=== PATIENT | male | born 1960 | race Caucasian/White ===

== ENCOUNTER 2018-10-10 15:15 | Inpatient (IN) | payer MEDICARE, MEDICAID ==
[~2018-10-10] VITALS: Ht 177.8 cm; Wt 85.8 kg
--- NOTE | ~2018-10-10 | EKG ---
[place], [place] ELECTROCARDIOGRAM REPORT NAME: TONY WALTERS UNIT #: [id number] ROOM: 411 DOCTOR: CHRISTOPHER DRAFT REPORT BIRTHDATE: [birth year] [facility] Test Date: 2018-10-10 Test Time: 17:34:20 Pat Name: TONY WALTERS Department: Room: 411 Gender: M Physician Assistant Surgery: Destiny Geller : 1960 Requested By: JOE AMAYA Order Number: [id number] Reading MD: Lana Salazar MD Measurements Intervals [place] Rate: 70 P: 2 NV: 165 QRS: -35 QRSD: 96 T: 174 QT: 394 QTc: 426 Interpretive Statements Sinus rhythm Left axis deviation Anterolateral infarct, age indeterminate Baseline wander in lead(s) V3 No previous ECG available for comparison Electronically Signed On 10-11-2018 15:04:29 PDT by Lana Salazar MD CM:EKGRPT:ELECTROCARDIOGRAM REPORT [id number] JOE WHITE DRAFT REPORT JOE AMAYA MD
--- NOTE | ~2018-10-10 | EKG ---
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
--- NOTE | ~2018-10-10 | EKG ---
[place], [place] ELECTROCARDIOGRAM REPORT NAME: TONY WALTERS UNIT #: [id number] ROOM: 411 DOCTOR: CHRISTOPHER DRAFT REPORT BIRTHDATE: [birth year] [facility] Test Date: 2018-10-10 Test Time: 21:25:19 Pat Name: TONY WALTERS Department: Room: 411 Gender: M Computer Typesetter: Michelle Trotter : 1960 Requested By: JOE AMAYA Order Number: [id number] Reading MD: Lana Salazar MD Measurements Intervals [place] Rate: 65 P: -33 ME: 172 QRS: -34 QRSD: 89 T: 226 QT: 400 QTc: 416 Interpretive Statements Sinus rhythm Left axis deviation Probable anterolateral infarct, age indeterm Electronically Signed On 10-11-2018 15:05:09 PDT by Lana Salazar MD CM:EKGRPT:ELECTROCARDIOGRAM REPORT [id number] JOE AMAYA MD EPIPHANY DRAFT REPORT JOE AMAYA MD
--- NOTE | ~2018-10-10 | EKG ---
[place], [place] ELECTROCARDIOGRAM REPORT NAME: TONY WALTERS UNIT #: [id number] ROOM: 411 DOCTOR: CHRISTOPHER DRAFT REPORT BIRTHDATE: [birth year] [facility] Test Date: 2018-10-12 Test Time: 20:50:16 Pat Name: TONY WALTERS Department: Room: 411 1 Gender: M Software Design Manager: EKG.MT : 1960 Requested By: KATHERINE REYES Order Number: [id number] Reading MD: Lana Salazar MD Measurements Intervals [place] Rate: 65 P: 55 [place]: 167 QRS: -26 QRSD: 98 T: 136 QT: 389 QTc: 405 Interpretive Statements Sinus rhythm Probable left atrial enlargement Borderline left axis deviation Probable anterolateral infarct, age indeterm Compared to ECG 10/10/2018 21:25:19 No significant changes Electronically Signed On 10-13-2018 15:07:11 PDT by Lana Salazar MD CM:EKGRPT:ELECTROCARDIOGRAM REPORT [id number] 1507 KATHERINE BALDERAS DRAFT REPORT KATHERINE REYES DO
[~2018-10-10 15:15] MED LIST: ASPIR LOW81 MG PO; HUMALOG100 U/ML SC; HYDROCODONE APA PO; LANTUS100 U/ML SC; LISINOPRIL5 MG PO; LOPRESSOR25 MG PO; METFORMIN1000 MG PO; PERCOCET 325 MG1 TA2 PO; PLAVIX75 MG PO; PRAVACHOL40 MG PO; PRILOSEC20 MG PO; ZANAFLEX4 M1 PO; ZANAFLEX4 MG PO
[2018-10-10 15:18] VITALS: BP 118/65
[2018-10-10 15:38] LABS: BASO # 0.1 10*3/uL (0.0-0.1); BASO % 0.7 % (0.0-1.0); EOS # 0.4 10*3/uL (0.0-0.4); EOS % 4.1 % (1.0-4.0); HEMATOCRIT 45.5 % (42.0-52.0); HEMOGLOBIN 15.5 g/dl (14.0-18.0); LYMPH # 1.7 10*3/uL (1.3-4.4); LYMPH % 17.7 % (27.0-41.0); MEAN CELL VOLUME 94.6 fl (80.0-94.0); MEAN CORPUSCULAR HGB 32.2 pg (27.0-31.0); MEAN CORPUSCULAR HGB CONC 34.1 g/dl (33.0-37.0); MEAN PLATELET VOLUME 11.6 fl (9.6-12.3); MONO # 1.1 10*3/uL (0.1-1.0); MONO % 11.4 % (3.0-9.0); NEUT # 6.2 10*3/uL (2.3-7.9); NEUT % 65.8 % (47.0-73.0); PLATELET COUNT AUTOMATED 202 10*3/uL (130-400); RED BLOOD COUNT 4.81 10*6/uL (4.50-5.90); RED CELL DISTRI WIDTH 12.4 % (0-14.5); WHITE BLOOD COUNT 9.4 10*3/uL (4.8-10.8)
[2018-10-10 15:49] LABS: ACT PARTIAL THROMBO TIME 25.2 SECONDS (20.0-32.1); INTERNATIONAL NORM RATIO 0.9 (2.0-3.5)
[2018-10-10 15:54] LABS: ALBUMIN 3.9 gm/dl (3.1-4.5); ALKALINE PHOSPHATASE 78 U/L (45-117); BUN 22 mg/dl (7-24); CHLORIDE 102 mmol/L (98-107); CREATININE 1.19 mg/dL (0.70-1.30); SGOT/AST 41 IU/L (3-35); SGPT/ALT 54 U/L (12-78); SODIUM 136 mmol/L (136-145); TOTAL PROTEIN 7.6 gm/dL (6.4-8.2)
[2018-10-10 15:57] LABS: TROPONIN I 0.042 ng/ml (<0.045)
[2018-10-10 16:12] VITALS: BP 122/75
--- NOTE | 2018-10-10 16:12 | NUR ---
LA 2.4 DR AMAYA AWARE.
[2018-10-10 16:58] VITALS: BP 120/76
[2018-10-10 17:20] VITALS: BP 123/74
--- NOTE | 2018-10-10 17:20 | NUR ---
A 57, admitted to , under the services of CORNELIUS Meyers DO with a diagnosis of CHEST PAIN WITH MODERATE RISK FOR CARDIAC ETIOLOGY. Chief complaint is CHEST PAIN. Patient arrived via bed from ER. Monitor applied. Initial assessment completed. Vital signs taken and recorded. CORNELIUS MEYERS DO notified of admission to the unit. Orders received. See assessment for past medical history, medications and allergies. Patient and/or family oriented to unit. [facility] visitation policy reviewed. Clothing/patient valuable form completed. [address]
--- NOTE | 2018-10-10 18:55 | NUR ---
PT GIVEN TORADOL 30 MG AT THIS TIME FOR C/O BACK AND BILATERAL FOOT PAIN. WILL MONITOR FOR EFFECTIVENESS. PT CURRENTLY SITTING UP, EATING DINNER. CALL LIGHT IN REACH.
[2018-10-10 20:00] VITALS: BP 122/91
--- NOTE | 2018-10-10 20:31 | NUR ---
SPOKE WITH DR SHAH REGARDING CLAIFICATION OF NEW ORDER FOR ONE TIME DOSE OF TORADOL. PATIENT RECENTLY WAS GIVEN ONE TIME DOSE AT 1849 DR SHAH WAS INFORMED AND STATED NOT TO GIVE CURRENT DOSE. SHE WILL PLACE NEW ORDERS FOR PAIN MANAGEMENT.
--- NOTE | 2018-10-10 21:24 | NUR ---
PRN MORPHINE GIVEN AT THIS TIME FOR COMPLAINTS OF BACK AND CHEST PAIN RATED 7/10. PHYSICIANS ARE AWARE OF PATIENT COMPLAINTS OF CHEST PAIN. WILL EVALUATE EFFECTIVENESS OF MORPHINE.
--- NOTE | 2018-10-10 21:56 | NUR ---
PATIENT REFUSED FECAL OCCULT UNLESS IT WAS DR SHAH WHO PERFORMED THE TEST. DR SHAH WAS INFORMED.
--- NOTE | 2018-10-10 22:13 | NUR ---
PRN RESTORIL GIVEN AT THIS TIME FOR COMPLAINTS OF INSOMNIA. AT THIS TIME PATIENT ALSO STATES PRN MORPHINE WAS EFFECTIVE FOR RELIEVING PAIN. PATIENT NOW RATES BACK AND CHEST PAIN 3/10. WILL EVALAUTE EFFECTIVENESS OF RESTORIL.
--- NOTE | 2018-10-10 22:25 | NUR ---
DR PARK NOTIFIED OF CONSULT FOR CARDIOLOGY. NO ORDERS RECEIVED AT THIS TIME.
--- NOTE | 2018-10-10 22:34 | NUR ---
DR SHAH NOTIFIED OF ELEVATED TROPONIN OF 0.054
[2018-10-11] VITALS (7 sets, daily range): BP systolic 101–132; BP diastolic 54–80
--- NOTE | 2018-10-11 | NUR ---
UPON ENTERING ROOM PATIENT TO ASSESS PT. HE STATED WHAT WOULD YOU DO IF I HAD BEEN SLEEPING? I INFORMED PATIENT THAT I WOULD HAVE LET HIM SLEEP. COOPERATIVE WITH ASSESSMENT. VOICES NO C/O CHEST PAIN OR ANY DISCOMFORT AT THIS TIME. CALL LIGHT WITHIN REACH.
--- NOTE | 2018-10-11 04:15 | NUR ---
MEDICATED WITH MS FOR C/O PAIN.
--- NOTE | 2018-10-11 06:00 | NUR ---
MEDICATED WITH NORCO FOR C/O CHEST/JAW PAIN.
--- NOTE | 2018-10-11 06:02 | NUR ---
MEDICATED WITH NORCO FOR C/O CHEST & JAW PAIN.
[2018-10-11 06:21] LABS: ALBUMIN 3.6 gm/dl (3.1-4.5); ALKALINE PHOSPHATASE 68 U/L (45-117); BUN 28 mg/dl (7-24); CHLORIDE 102 mmol/L (98-107); CHOLESTEROL 136 mg/dL (<200); CREATININE 0.96 mg/dL (0.70-1.30); FREE T4 1.22 ng/dl (0.76-1.46); HDL CHOLESTEROL 40 mg/dl (40-60); LDL CHOLESTEROL 72 mg/dL (9-159); POTASSIUM 3.9 mmol/L (3.5-5.1); SGOT/AST 36 IU/L (3-35); SGPT/ALT 52 U/L (12-78); SODIUM 133 mmol/L (136-145); TOTAL PROTEIN 6.9 gm/dL (6.4-8.2); TRIGLYCERIDES 121 mg/dl (<150); VLDL CHOLESTEROL 24 mg/dL (6-40)
[2018-10-11 06:25] LABS: THYROID STIM HORMONE (HS) 0.984 uIU/ml (0.358-4.75)
[2018-10-11 06:26] LABS: BASO # 0.1 10*3/uL (0.0-0.1); BASO % 0.9 % (0.0-1.0); EOS # 0.6 10*3/uL (0.0-0.4); EOS % 8.8 % (1.0-4.0); LYMPH # 2.2 10*3/uL (1.3-4.4); LYMPH % 31.3 % (27.0-41.0); MEAN CELL VOLUME 94.5 fl (80.0-94.0); MEAN CORPUSCULAR HGB 31.5 pg (27.0-31.0); MEAN CORPUSCULAR HGB CONC 33.3 g/dl (33.0-37.0); MONO # 0.9 10*3/uL (0.1-1.0); MONO % 13.3 % (3.0-9.0); NEUT # 3.2 10*3/uL (2.3-7.9); NEUT % 45.6 % (47.0-73.0); PLATELET COUNT AUTOMATED 183 10*3/uL (130-400); RED BLOOD COUNT 4.76 10*6/uL (4.50-5.90); RED CELL DISTRI WIDTH 12.5 % (0-14.5)
--- NOTE | 2018-10-11 06:35 | NUR ---
PT. STATES "STOMACH UPSET FROM NORCO". TOOK PATIENT LATASHA ABHAY & SALTINES.
--- NOTE | 2018-10-11 06:44 | NUR ---
PT. C/O CHEST/JAW PAIN. STATES MS INEFFECTIVE. CALLED DR. BAEZA; NEW ORDER RECEIVED.
[2018-10-11 07:33] LABS: VITAMIN D, 25-HYDROXY 22.4 ng/mL (30-100)
--- NOTE | 2018-10-11 12:07 | NUR ---
NORCO GIVEN FOR C/O BACK PAIN. RATES 8/10 ON PAIN SCALE. WILL MONITOR.
--- NOTE | 2018-10-11 13:43 | NUR ---
[facility] [phone] AWAITING CALL BACK
--- NOTE | 2018-10-11 14:26 | NUR ---
EARLIER NORCO BACK PAIN HAS BEEN EFFECTIVE, PT CONTINUES TO CONSTANTLY WALK THE HALLS, HANG OUT AT THE DESK, STOPPING MOST STAFF TO TALK AND WAS OVERHEARD SAYING "STOP IN AND SEE ME LATER" TO A YOUNGER STAFF MEMBER
--- NOTE | 2018-10-11 14:47 | NUR ---
AWAITING CALL BACK TO VERIFY MEDS PT IN ROOM AT BEDSIDE
--- NOTE | 2018-10-11 15:27 | NUR ---
Shift chart check completed.24 HR chart check completed.
--- NOTE | 2018-10-11 16:31 | NUR ---
PT AMBULATORY IN THE HALLS. ROOM AIR. SKIN WARM AND DRY. "I'VE BEEN TO A LOT OF HOSPITALS AND I HAVE REALLY HAD A GOOD EXPERIENCE HERE". HEP LOCK INTACT. NO PERIPHERAL EDEMA. LUNGS CLEARLY DIMINISHED. MONITOR SHOWS OCCASIONAL ATRIAL PACING. SEE ALL APPROPRIATE INTERVENTIONS.
--- NOTE | 2018-10-11 18:04 | NUR ---
MERVIN FOR BACK PAIN "6 OR 7"10 PER PT REQUEST.
--- NOTE | 2018-10-11 18:54 | NUR ---
PT HAS BEEN AMBULATING IN HALLS WITH HIS CANE WITH NO FURTHER VOICED COMPLAINTS OF PAIN SINCE EARLIER [place].
--- NOTE | 2018-10-11 21:59 | NUR ---
MEDICATED WITH RESTORIL FOR C/O INSOMNIA.
[2018-10-12] VITALS: BP 109/76
--- NOTE | 2018-10-12 | NUR ---
RESTING IN BED WITH EYES CLOSED. CALL LIGHT WITHIN REACH.
--- NOTE | 2018-10-12 06:05 | NUR ---
MEDICATED WITH NORCO FOR C/O CHEST, JAW & BACK PAiN RATED AN 8/10.
--- NOTE | 2018-10-12 06:18 | NUR ---
AMBULATING IN THE HALLWAYS WITH A CANE. GAIT STEADY.
[2018-10-12 06:27] LABS: BUN 20 mg/dl (7-24); CHLORIDE 108 mmol/L (98-107); CREATININE 0.76 mg/dL (0.70-1.30); SODIUM 136 mmol/L (136-145)
[2018-10-12 06:32] LABS: POTASSIUM 5.4 mmol/L (3.5-5.1)
--- NOTE | 2018-10-12 07:30 | NUR ---
BLOOD SUGAR 223; COVERAGE GIVEN PER EMAR.
--- NOTE | 2018-10-12 07:30 | NUR ---
AMBULATING HALLWAY. NO DISTRESS NOTED
[2018-10-12 08:00] VITALS: BP 122/72
--- NOTE | 2018-10-12 08:09 | NUR ---
24 HR chart check completed.
--- NOTE | 2018-10-12 09:00 | NUR ---
DR ETIENNE PRESENT ON FLOOR TO ASSESS PATIENT AND DISCUSS PLAN OF CARE
--- NOTE | 2018-10-12 09:40 | NUR ---
Feli ETIENNE CALLED IN REGARDING MEDS. PER DR ETIENNE, PATIENT CLAIMS TO TAKE LASIX WHICH IS NOT LISTED ON MED REC. ATTEMPTED TO VERIFY MEDS WITH PATIENT WHO CLAIMS HE HAS TOLD MULTIPLE STAFF MEDICATIONS. MEDS AGAIN REVIEWED AND UPDATED IN COMPUTER. PATIENT UNSURE OF SOME DOSES AND CONTINUALLY ADDS MEDS. PER PATIENT, [facility] AND HAS NOT BEEN TO A DR OR HAD MEDS FILLED. CLAIMS MEDS PROVIDED BY SNF ON D/C BUT MEDS WERE "STOLEN FROM MY CAR." RN SPOKE WITH SNF FACILITY YESTERDAY BUT UNWILLING TO PROVIDE INFORMATION REGARDING MEDS. PATIENT RECENTLY IN-PT AT [facility], ATTEMPTED TO OBTAIN RECORDS YESTERDAY AND AGAIN REFAXED TODAY. DR ETIENNE CONTACTED AND INFORMED
[2018-10-12] MEDS ORDERED: IMDUR SA30 MG PO (09:51)
[2018-10-12] MEDS ORDERED: COREG3.125 MG PO (09:52)
[2018-10-12] MEDS ORDERED: GLUCOPHAGE1000 MG PO (09:53)
[2018-10-12] MEDS ORDERED: METFORMIN HCL500 M2 PO (09:54)
[2018-10-12] MEDS ORDERED: LASIX10 MG/ML PO (09:55)
[2018-10-12] MEDS ORDERED: NOVOLIN 70100 UNIT/2 SC (09:56)
[2018-10-12] MEDS ORDERED: LIPITOR40 MG PO (09:57)
[2018-10-12] MEDS ORDERED: NOVOLIN 70100 UNIT/2 SQ (10:00)
--- NOTE | 2018-10-12 10:00 | NUR ---
CONTINUES TO AMBULATE WITH NO DISTRESS NOTED
[2018-10-12] MEDS ORDERED: K-TAB10 MEQ PO (10:08)
[2018-10-12] MEDS ORDERED: CAROSPIR25 MG/5 ML PO (10:09)
--- NOTE | 2018-10-12 11:30 | NUR ---
DR BYNUM/ LOWELL HARDY
[2018-10-12] MEDS ORDERED: GLUCOPHAGE500 M1 PO (11:39)
[2018-10-12 12:00] VITALS: BP 130/73
--- NOTE | 2018-10-12 12:02 | NUR ---
REQUESTED AND RECEIVED NORCO PER PRN ORDER FOR COMPLAINTS OF JAW AND CHEST PAIN RATING A 6. VSS. NO UTILITIES AND MAINTENANCE SUPERVISOR CHANGES. WILL MONITOR
--- NOTE | 2018-10-12 12:30 | NUR ---
AGAIN AMBULATING HALLWAY. NO FURTHER COMPLAINTS
--- NOTE | 2018-10-12 12:40 | NUR ---
DR ETIENNE CONTACTED AND INFORMED INFO RECEIVED FROM RECENT ADMISSION [facility]. MED REC UPDATED
--- NOTE | 2018-10-12 13:18 | NUR ---
PT REQUESTED IV ZOFRAN PER PRN ORDER FOR C/O NAUSEA. WILL MONITOR EFFECTIVENESS.
--- NOTE | 2018-10-12 14:30 | NUR ---
AMBULATING HALLWAY. NO VOICED COMPLAINTS
--- NOTE | 2018-10-12 15:30 | NUR ---
DR PARK CARDIOLOGY PRESENT ON FLOOR TO ASSESS PATIENT AND DISCUSS PLAN OF CARE. RECORDS FROM [facility] REVIEWED. PER DR PARK, NO FURTHER TESTING NEEDED
--- NOTE | 2018-10-12 15:50 | NUR ---
PATIENT AMBULATING HALLWAY AGAIN AFTER DISCUSSION WITH DR PARK. WALKED TO NURSES STATION, STATES "I'M STILL NAUSEATED" DESPITE PREVIOUS ZOFRAN. PATIENT THEN CONTINUES TO AMBULATE HALLWAY WITH NO DISTRESS NOTED
[2018-10-12 16:00] VITALS: BP 112/75
--- NOTE | 2018-10-12 17:15 | NUR ---
PATIENT SITTING AT BEDSIDE CONSUMING CHICKEN STIR-BAKER WITHOUT DIFFICULTY DESPITE EARLIER COMPLAINTS OF NAUSEA
--- NOTE | 2018-10-12 18:00 | NUR ---
AMBULATED TO NURSING STATION C/O NAUSEA AND PAIN. PATIENT CONTINUES TO AMBULATE HALLS IN NO APPARENT DISTRESS. NOT AVAIL IN ROOM FOR MEDICATION
--- NOTE | 2018-10-12 18:30 | NUR ---
PATIENT STATES PACER BIO-MED. NO CARD AVAILABLE PATIENT STATES HE DID NOT RECEIVE D/T BEING IN LONGTERM WHEN PLACED.
--- NOTE | 2018-10-12 18:45 | NUR ---
PATIENT OBSERVED ON 3RD FLOOR BY HOSPITAL STAFF. PATIENT APPROACHED REGARDING LEAVING THE FLOOR. PATIENT DEFENSIVE STATING "I'M NOT A CHILD." POLICY REVIEWED AND PATIENT ASKED TO NOT LEAVE FLOOR AGAIN ALTHOUGH HE IS PERMITTED TO AMBULATE ON 4TH FLOOR
--- NOTE | 2018-10-12 19:15 | NUR ---
AISLINN CALLED IN, WILL INTERROGATE PACER IN AM
--- NOTE | 2018-10-12 19:36 | NUR ---
PATIENT UP & WALKING MULTIPLE LAPS IN HALLWAY. NO S/S OF DISTRESS NOTED.
[2018-10-12 20:00] VITALS: BP 121/87
--- NOTE | 2018-10-12 20:18 | NUR ---
PT WALKING AROUND IN HALLWAY AND COMES UP TO NURSES STATION AT THIS TIME C/O NAUSEA & PAIN IN BACK/CHEST/L ARM/JAW DESPITE ZOFRAN/NORCO ADMINISTERED AT 1830. PT STATES "IT FEELS LIKE I GOT BEAT UP." PT ENCOURAGED TO REST AT THIS TIME. RN LEFT ROOM AND RETURNED WITH LATASHA ABHAY/SODA CRACKERS TO OFFER PT. PT SITTING UP IN BED. NO PHYSICAL S/S OF DISTRESS NOTED.
--- NOTE | 2018-10-12 20:29 | NUR ---
RN ENTERED ROOM TO FIND PATIENT LAYING IN BED WITH HANDS BEHIND HEAD & LEG UP RESTING ON OPPOSITE KNEE. PT SMILING AND WATCHING TV. RN OFFERED PATIENT TYLENOL FOR C/O PAIN. PATIENT LASHES BACK AT RN ASKING "ARE YOU NEW HERE OR SOMETHING? IF NORCO DIDN'T WORK WHY WOULD TYLENOL." RN EXPLAINED TO PATIENT THAT TYLENOL IS THE ONLY AVAILABLE MEDICATION ORDERED AND THAT THE DR WOULD HAVE TO BE CALLED. PATIENT STATES "WELL IF YOU WEREN'T NEW, YOU WOULD KNOW TO CALL THE DR." RN EXPLAINED TO PATIENT THAT SHE WANTED TO OFFER ALL AVAILABLE MEDICATIONS PRIOR TO CALLING THE DR IN HOPES OF HELPING PT FIND SOME RELIEF. PT CONTINUES TO BE HOSTILE WITH RN AND YELLING. NOTIFIED OF SITUATION AND PATIENT'S REQUEST FOR "SOMETHING STRONGER MEDICATION-BOUDREAUX." STATES HE WILL REVIEW CHART. ALSO AWARE OF PATIENT AMBULATING HALLS PRIOR TO PAIN & BEING FOUND ON 3RD FLOOR EARLIER TODAY.
--- NOTE | 2018-10-12 20:52 | NUR ---
WENT IN TO MEDICATE PT WITH IV MORPHINE ORDERED BY . PATIENT NOT IN ROOM, UP AMBULATING IN [place]. PATIENT RETURNED TO ROOM. STILL RATING PAIN 10/10. 1 MG IV MORPHINE ADMINISTERED SLOWLY AT THIS TIME. IV SITE IN RAC PATENT W/ DRESSING D/I. [employer]P [employer]NER[employer]IPS IN ROOM TO CARRY OUT EKG ORDER. WILL CONTINUE TO MONITOR.
--- NOTE | 2018-10-12 21:02 | NUR ---
PT AGAIN UP IN [place] AMBULATING WITH CANE.
--- NOTE | 2018-10-12 21:36 | NUR ---
PT UP AMBULATING IN HALLS. STATES EARLIER MORPHINE EFFECTIVE, NOW RATING PAIN 5/10. PT STILL C/O NAUSEA. SODA CRACKERS/LATASHA ABHAY AGAIN OFFERED. PT ACCEPTED. WILL MONITOR. CALL LIGHT LEFT IN REACH.
--- NOTE | 2018-10-12 22:54 | NUR ---
PATIENT UP AMBULATING IN HALLS WITH CANE. PT SITTING AT PA STATION ASKING THE GIRLS TO COME TO HIS ROOM TO TALK WITH HIM. THE PAs DECLINED AND NOTIFIED CHARGE NURSE OF THIS. PATIENT ASKED TO REMAIN IN ROOM, IT IS 11 PM AT NIGHT AND IS A COURTESY TO THE OTHER PATIENTS WHO ARE SICK. PT STATES HE MUST GET UP HIS BACK HURTS IF HE DOES NOT. RN OFFERED THAT IF PT IS UP AMBULATING IN HALLWAY, TO PLEASE REMAIN ON THE 4TH FLOOR AND TO NOT GO INTO OTHER PATIENT ROOMS. ALSO EXPLAINED TO PT THAT HE IS NOT PERMITTED TO SIT AT PA STATION, BECAUSE THEY ARE NOT ABLE TO CHART WHILE HE IS THERE. RN EXPLAINED TO PT THAT THIS COULD LEAD TO A POTENTIAL HIPAA VIOLATION. PT VERBALIZES UNDERSTANDING AND AGREES TO THESE TERMS. SHIFT DIRECTOR NOTIFIED OF SITUATION.
[2018-10-13 00:20] VITALS: BP 105/72
--- NOTE | 2018-10-13 00:30 | NUR ---
PT MEDICATED WITH IV ZOFRAN FOR C/O NAUSEA. PO NORCO ALSO ADMINISTERED FOR C/O CHEST/L ARM/JAW/BACK PAIN RATED 6/10. WILL MONITOR EFFECTIVENESS. CALL LIGHT LEFT IN REACH.
--- NOTE | 2018-10-13 02:16 | NUR ---
EARLIER MEDICATIONS APPEAR EFFECTIVE. PATIENT ALSEEP IN BED. RESPIRATIONS EASY. NO S/S OF DISTRESS NOTED. WILL MONITOR. CALL LIGHT LEFT IN REACH.
--- NOTE | 2018-10-13 02:44 | NUR ---
PT AMBULATING IN [place] AT THIS TIME. DENIES ANY NEEDS CURRENTLY.
--- NOTE | 2018-10-13 06:28 | NUR ---
RN ACCOMPANIED TANK INSPECTOR INTO ROOM FOR MORNING BLOOD DRAW. TANK INSPECTOR KNOCKED, INTRODUCED SELF, USED HAND DEPUTY COUNTY COUNSEL, AND EXPLAINED SHE WAS GOING TO DRAW BLOOD FOR ORDERED LABS THIS MORNING. PATIENT IMMEDIATELY BECAME HOSTILE AND BEGAN YELLING AT TANK INSPECTOR, STATING THERE IS ABSOLUTELY NO WAY SHE IS GOING TO DRAW HIS BLOOD. RN AND TANK INSPECTOR EXPLAINED TO PATIENT THE IMPORTANCE OF THESE LAB RESULTS. PT STATES HE DOES NOT CARE. WILL ONLY AGREE TO FINGER STICK FOR BEDSIDE GLUCOSE TEST. LABS CANCELLED FOR THIS REASON. PT C/O CHEST PAIN/JAW PAIN/L ARM PAIN/BACK PAIN RATED 6/10. PO NORCO ADMINISTERED AT THIS TIME. WILL MONITOR EFFECTIVENESS.
--- NOTE | 2018-10-13 07:30 | NUR ---
NORCO NOT FULLY EFFECTIVE PER PT. WILL MONITOR.
[2018-10-13 08:00] VITALS: BP 130/86; BP 139/82
--- NOTE | 2018-10-13 10:53 | NUR ---
NORCO GIVEN FOR C/O CHEST PAIN. RATES 6/10 ON PAIN SCALE. ZOFRAN GIVEN FOR C/O NAUSEA. WILL MONITOR.
[2018-10-13 12:00] VITALS: BP 116/69
--- NOTE | 2018-10-13 12:00 | NUR ---
NORCO HELPING, NOT FULLY EFFECTIVE PER PT. WILL CONTINUE TO MONITOR.
[2018-10-13] MEDS ORDERED: ACCU-CHEK FAST1 EACH MC (13:22)
[2018-10-13] MEDS ORDERED: LIPITOR40 MG PO (13:22)
[2018-10-13] MEDS ORDERED: IMDUR SA30 MG PO ×2 (13:22→13:29)
[2018-10-13] MEDS ORDERED: GLUCOPHAGE500 M1 PO (13:22)
[2018-10-13] MEDS ORDERED: ASPIR LOW81 MG PO (13:22)
[2018-10-13] MEDS ORDERED: GLUCOPHAGE1000 MG PO (13:22)
[2018-10-13] MEDS ORDERED: COREG3.125 MG PO (13:22)
[2018-10-13] MEDS ORDERED: NOVOLIN 70100 UNIT/2 SC (13:22)
[2018-10-13] MEDS ORDERED: LISINOPRIL5 MG PO (13:22)
[2018-10-13] MEDS ORDERED: PLAVIX75 M1 PO (13:22)
[2018-10-13] MEDS ORDERED: TEST STRIPS1 EACH MC (13:22)
[2018-10-13] MEDS ORDERED: ALDACTONE25 MG PO (13:22)
[2018-10-13] MEDS ORDERED: K-TAB10 MEQ PO (13:22)
[2018-10-13] MEDS ORDERED: VITAMIN D31000 UNI1 PO (13:22)
[2018-10-13] MEDS ORDERED: NOVOLIN 70100 UNIT/2 SQ (13:22)
[2018-10-13] MEDS ORDERED: Humalog SQ (13:22)
[2018-10-13] MEDS ORDERED: LASIX10 MG/ML PO (13:22)
[2018-10-13] MEDS ORDERED: PEN NEEDLE1 EAC1 MC (13:22)
[2018-10-13] MEDS ORDERED: COREG12.5 M1 PO (13:29)
[2018-10-13] MEDS ORDERED: LASIX20 MG PO (13:31)
--- NOTE | 2018-10-13 14:37 | NUR ---
Safety Instruction Police Officer in to talk to patient. Patient states lives at HOME with FRIEND. There are FEW steps in the home. Physician: NONE AT THIS TIME Pharmacy: [facility] Home health services: NONE Patient's level of ADLs: INDEPENDENT Patient has working utilities: YES DME: CANE Follow-up physician's appointment after d/c: STATES HE WILL FIND ONE AND MAKE APPOINTMENT Does patient want to access PORTAL?: NO Discharge plan PT LIVES AT HOME WITH A FRIEND. DENIES ANY NEEDS AT HOME BUT STATES HE JUST GOT OUT OF CARE HOME AND RECENTLY HAD ALL OF HIS MEDICATION AND GLUCOMETER STOLEN FROM A CAR. STATES HE WILL NEED NEW MEDS. PT HAS MEDICAID AND SHOULD BE ABLE TO GET MEDS REPLACED AT NO COST. WILL CONTINUE TO FOLLOW.. STATES HE WILL HAVE A RIDE HOME ON DISCHARGE. SEVERO LOYA
--- NOTE | 2018-10-13 14:45 | NUR ---
Spoke to business office regarding patient having [place] Medicaid. Informed patient and his nurse his medications would be paid at 100% by [place] Medicaid. patient verbalized an understanding.
--- NOTE | 2018-10-13 14:47 | NUR ---
NORCO GIVEN FOR C/O CHEST PAIN. RATES 5/10 ON PAIN SCALE. WILL MONITOR.
--- NOTE | 2018-10-13 15:33 | NUR ---
[facility] Discharge instructions reviewed with patient/family. Patient receptive and verbalizes understanding. Follow-up care arranged. Written instructions given to patient/family. IGNACIO BURGOS
== END 2018-10-13 15:33 | disposition home or self-care (01) | DRG 205 ==
LOC: ED 15:15 → 4E 17:01 → EDHOLD 17:01 → 4E 17:04
PROVIDERS: Emergency Medicine; Family Medicine; Internal Medicine; ADMIT Internal Medicine
DX: M94.0 Chondrocostal junction syndrome [Tietze] (principal); J18.9 Pneumonia, unspecified organism; I50.20 Unspecified systolic (congestive) heart failure; R74.8 Abnormal levels of other serum enzymes; G89.29 Other chronic pain; M54.6 Pain in thoracic spine; E11.65 Type 2 diabetes mellitus with hyperglycemia; F41.9 Anxiety disorder, unspecified; E78.5 Hyperlipidemia, unspecified; I25.5 Ischemic cardiomyopathy; E87.5 Hyperkalemia; M54.5 Low back pain; I11.0 Hypertensive heart disease with heart failure; I25.118 Atherosclerotic heart disease of native coronary artery with other forms of angina pectoris; Z53.29 Procedure and treatment not carried out because of patient's decision for other reasons; K21.9 Gastro-esophageal reflux disease without esophagitis; R74.0 Nonspecific elevation of levels of transaminase and lactic acid dehydrogenase [LDH]; Z95.5 Presence of coronary angioplasty implant and graft; Z95.1 Presence of aortocoronary bypass graft; Z98.1 Arthrodesis status; Z95.0 Presence of cardiac pacemaker; Z79.4 Long term (current) use of insulin; I25.2 Old myocardial infarction; T82.858S Stenosis of other vascular prosthetic devices, implants and grafts, sequela; Z88.2 Allergy status to sulfonamides; Z86.73 Personal history of transient ischemic attack (TIA), and cerebral infarction without residual deficits; Z90.49 Acquired absence of other specified parts of digestive tract; Z87.891 Personal history of nicotine dependence; Z79.82 Long term (current) use of aspirin; Z79.899 Other long term (current) drug therapy; Z79.02 Long term (current) use of antithrombotics/antiplatelets; Z91.14 Patient's other noncompliance with medication regimen

== ENCOUNTER 2023-06-04 16:28 | Emergency (ER) | payer MEDICARE ==
[~2023-06-04] VITALS: Ht 177.8 cm; Wt 67.6 kg
[~2023-06-04 16:28] MED LIST changes: +ACCU-CHEK FAST1 EACH MC; +ALDACTONE25 MG PO; +CAROSPIR25 MG/5 ML PO; +COREG12.5 M1 PO; +COREG3.125 MG PO; +GLUCOPHAGE1000 MG PO; +GLUCOPHAGE500 M1 PO; +Humalog SQ; +IMDUR SA30 MG PO; +K-TAB10 MEQ PO; +LASIX10 MG/ML PO; +LASIX20 MG PO; +LIPITOR40 MG PO; +METFORMIN HCL500 M2 PO; +NOVOLIN 70100 UNIT/2 SC; +NOVOLIN 70100 UNIT/2 SQ; +PEN NEEDLE1 EAC1 MC; +PLAVIX75 M1 PO; +TEST STRIPS1 EACH MC; +VITAMIN D31000 UNI1 PO
[2023-06-04 17:01] LABS: BASO % 0.3 % (0.0-1.0); EOS # 0.1 10*3/uL (0.0-0.4); EOS % 1.1 % (1.0-4.0); HEMATOCRIT 46.8 % (42.0-52.0); LYMPH # 1.8 10*3/uL (1.3-4.4); MEAN CELL VOLUME 98.1 fl (80.0-94.0); MEAN CORPUSCULAR HGB 33.8 pg (27.0-31.0); MEAN CORPUSCULAR HGB CONC 34.4 g/dl (33.0-37.0); MEAN PLATELET VOLUME 11.6 fl (9.6-12.3); MONO % 11.2 % (3.0-9.0); NEUT # 6.2 10*3/uL (2.3-7.9); NEUT % 67.1 % (47.0-73.0); PLATELET COUNT AUTOMATED 192 10*3/uL (130-400); RED BLOOD COUNT 4.77 10*6/uL (4.50-5.90); RED CELL DISTRI WIDTH 11.3 % (0-14.5); WHITE BLOOD COUNT 9.2 10*3/uL (4.8-10.8)
[2023-06-04 17:17] LABS: ACT PARTIAL THROMBO TIME 29.4 SECONDS (20.0-32.1)
[2023-06-04 17:24] LABS: ALKALINE PHOSPHATASE 70 U/L (46-116); BUN 11 mg/dl (9-23); CHLORIDE 101 mmol/L (98-107); POTASSIUM 3.7 mmol/L (3.4-5.1); SGPT/ALT 14 U/L (5-49); TOTAL PROTEIN 7.2 gm/dL (6.0-8.0)
== END 2023-06-04 23:30 | disposition short-term general hospital (02) ==
LOC: ED 16:28
PROVIDERS: Family Medicine
DX: I21.4 Non-ST elevation (NSTEMI) myocardial infarction (principal); I25.2 Old myocardial infarction; Z86.73 Personal history of transient ischemic attack (TIA), and cerebral infarction without residual deficits; Z88.2 Allergy status to sulfonamides; Z98.890 Other specified postprocedural states; Z87.891 Personal history of nicotine dependence